=== PATIENT | female | born 1965 | race Two or more races ===

== ENCOUNTER 2017-02-13 10:17 | Emergency (ER) | payer OTHER ==
[~2017-02-13] VITALS: Ht 152.4 cm; Wt 90.7 kg
[2017-02-13 12:21] VITALS: BP 131/72
== END 2017-02-13 12:21 ==
LOC: ED 10:17
DX: M25.551 Pain in right hip (principal); E11.9 Type 2 diabetes mellitus without complications; I10 Essential (primary) hypertension; W17.89XA Other fall from one level to another, initial encounter; Y93.89 Activity, other specified; Y99.8 Other external cause status; Y92.89 Other specified places as the place of occurrence of the external cause

== ENCOUNTER 2018-04-13 03:18 | Emergency (ER) | payer OTHER ==
[2018-04-13 03:30] VITALS: Ht 152.4 cm
[2018-04-13 05:08] LABS: UA SPECIFIC GRAVITY 1.025 (1.005-1.035); microscopic required? YES; urine erythrocyte NEGATIVE (NEGATIVE)
[2018-04-13 05:55] VITALS: BP 156/88
== END 2018-04-13 05:56 | disposition home or self-care (01) ==
LOC: ED 03:18
PROVIDERS: Emergency Medicine
DX: M54.31 Sciatica, right side (principal); N39.0 Urinary tract infection, site not specified; I10 Essential (primary) hypertension; E11.9 Type 2 diabetes mellitus without complications; Z90.89 Acquired absence of other organs; W18.30XA Fall on same level, unspecified, initial encounter; Y93.89 Activity, other specified; Y92.89 Other specified places as the place of occurrence of the external cause; Y99.8 Other external cause status
CPT/HCPCS: Q0092

== ENCOUNTER 2018-07-08 20:22 | Emergency (ER) | payer OTHER ==
[~2018-07-08] VITALS: Ht 152.4 cm; Wt 80.7 kg
[2018-07-08 21:01] VITALS: Ht 152.4 cm; Wt 80.7 kg
[2018-07-08 23:29] VITALS: BP 130/74
== END 2018-07-08 23:29 | disposition home or self-care (01) ==
LOC: ED 20:22
DX: S39.012A Strain of muscle, fascia and tendon of lower back, initial encounter (principal); S79.912A Unspecified injury of left hip, initial encounter; I10 Essential (primary) hypertension; E11.9 Type 2 diabetes mellitus without complications; Z90.89 Acquired absence of other organs; Z98.890 Other specified postprocedural states; W19.XXXA Unspecified fall, initial encounter; Y93.89 Activity, other specified; Y92.89 Other specified places as the place of occurrence of the external cause; Y99.8 Other external cause status
CPT/HCPCS: J1885